=== PATIENT | female | born 1975 | race African-American/Black ===

== ENCOUNTER 2019-01-07 03:51 | Emergency (ER) | payer BC ==
[~2019-01-07] VITALS: Ht 162.6 cm; Wt 108.9 kg
[2019-01-07 04:48] LABS: Urine Bacteria NONE SEEN /hpf (None Seen); Urine Blood 1+ /uL (Negative); Urine Mucus FEW (None Seen); Urine Specific Gravity 1.031 (1.001-1.035); Urine WBC 15 /hpf (0 - 5)
[2019-01-07 07:11] LABS: Basophils # (auto) 0 uL; Basophils % (auto) 0.3 % (0.0-2.0); Eosinophils # (auto) 0 uL; Eosinophils % (auto) 0.1 % (0.0-7.0); Lymphocytes # (auto) 2.7 uL; Lymphocytes % (auto) 32.7 % (10.0-50.0); Mean Corpuscular Hemoglobin 30.2 pg (28.0-32.0); Mean Corpuscular Hgb Conc. 33.2 g/dL (32.0-36.0); Mean Corpuscular Volume 90.9 fL (80.0-100.0); Monocytes # (auto) 0.4 uL; Monocytes % (auto) 5.1 % (0.0-12.0); Neutrophils % (auto) 61.8 % (37.0-80.0); Nucleated Red Blood Cells % 0.3 %; Platelet Count (auto) 330 10^3/uL (140-450); Red Blood Cells 3.97 10^6/uL (4.0-5.20); Red Cell Distribution Width 14.5 % (11.8-14.3); White Blood Cell 8.2 10^3/uL (4.4-10.8)
[2019-01-07 07:26] LABS: Albumin 3.5 g/dL (3.4-5.0)
[2019-01-07 07:29] LABS: BUN/Creatinine Ratio 8.1; Bilirubin, Total 0.8 mg/dL (0.2-1.0)
[2019-01-07] MEDS ORDERED: cefTRIAXone SOD 1,000 MG VL IM ONE (10:15)
[2019-01-07] MEDS ORDERED: LIDOCAINE 2% (LOCAL ANESTH.) PF 5ml SDV ONE (10:26)
[2019-01-07 11:11] VITALS: BP 105/57
== END 2019-01-07 11:20 | disposition home or self-care (01) ==
LOC: ER 03:54
DX: N39.0 Urinary tract infection, site not specified (principal); J45.909 Unspecified asthma, uncomplicated; I10 Essential (primary) hypertension
CPT/HCPCS: 36415; 80053; 81001; 81025; 82150; 83690; 85025; 96372; 99283; J0696; J2001

== ENCOUNTER 2019-05-03 13:59 | Emergency (ER) | payer BC ==
[~2019-05-03] VITALS: Ht 162.6 cm; Wt 109.8 kg
[2019-05-03 14:28] LABS: Basophils # (auto) 0.1 uL; Basophils % (auto) 0.5 % (0.0-2.0); Eosinophils # (auto) 0 uL; Hematocrit 38.4 % (36.0-46.0); Hemoglobin 12.7 g/dL (12.2-16.2); Lymphocytes # (auto) 2.6 uL; Lymphocytes % (auto) 22.8 % (10.0-50.0); Mean Corpuscular Hemoglobin 29.8 pg (28.0-32.0); Mean Corpuscular Volume 90.3 fL (80.0-100.0); Monocytes # (auto) 0.5 uL; Monocytes % (auto) 4.8 % (0.0-12.0); Neutrophils # (auto) 8.2 uL; Neutrophils % (auto) 71.9 % (37.0-80.0); Nucleated Red Blood Cells % 0.1 %; Platelet Count (auto) 367 10^3/uL (140-450); Red Blood Cells 4.25 10^6/uL (4.0-5.20); Red Cell Distribution Width 14.4 % (11.8-14.3); White Blood Cell 11.4 10^3/uL (4.4-10.8)
[2019-05-03 14:33] LABS: Urine Bacteria NONE SEEN /hpf (None Seen); Urine Blood 1+ /uL (Negative); Urine Specific Gravity 1.024 (1.001-1.035); Urine WBC 94 /hpf (0 - 5)
[2019-05-03 14:48] LABS: Potassium 3.8 mmol/L (3.5-5.1)
[2019-05-03 14:52] LABS: BUN/Creatinine Ratio 4.5; Bilirubin, Total 0.8 mg/dL (0.2-1.0); Total Protein 8.6 g/dL (6.4-8.2)
[2019-05-03 15:06] LABS: Calcium 9.6 mg/dL (8.5-10.1)
[2019-05-03] MEDS ORDERED: cefTRIAXone W LIDOCAINE 1 GM IM IM ONE (15:30)
[2019-05-03 16:01] VITALS: BP 142/79
== END 2019-05-03 16:14 | disposition home or self-care (01) ==
LOC: ER 14:13
DX: N39.0 Urinary tract infection, site not specified (principal); R11.2 Nausea with vomiting, unspecified; J45.909 Unspecified asthma, uncomplicated; I10 Essential (primary) hypertension
CPT/HCPCS: 36415; 74176; 80053; 81001; 81025; 85025; 99284; J0696

== ENCOUNTER 2019-07-21 14:29 | Emergency (ER) | payer BC ==
[~2019-07-21] VITALS: Ht 162.6 cm; Wt 114.3 kg
[2019-07-21 15:43] LABS: Urine Bacteria FEW /hpf (None Seen); Urine Blood 2+ /uL (Negative); Urine Mucus FEW (None Seen); Urine Specific Gravity 1.026 (1.001-1.035); Urine WBC 432 /hpf (0 - 5)
[2019-07-21 16:44] LABS: Basophils # (auto) 0.1 uL; Basophils % (auto) 0.6 % (0.0-2.0); Eosinophils # (auto) 0 uL; Eosinophils % (auto) 0.2 % (0.0-7.0); Hematocrit 38.8 % (36.0-46.0); Hemoglobin 12.9 g/dL (12.2-16.2); Lymphocytes # (auto) 2.6 uL; Mean Corpuscular Hemoglobin 29.8 pg (28.0-32.0); Mean Corpuscular Hgb Conc. 33.1 g/dL (32.0-36.0); Monocytes # (auto) 0.4 uL; Monocytes % (auto) 5.2 % (0.0-12.0); Neutrophils # (auto) 5.3 uL; Nucleated Red Blood Cells % 0.1 %; Platelet Count (auto) 350 10^3/uL (140-450); Red Blood Cells 4.32 10^6/uL (4.0-5.20); Red Cell Distribution Width 14.3 % (11.8-14.3); White Blood Cell 8.4 10^3/uL (4.4-10.8)
[2019-07-21 17:29] LABS: Albumin 3.8 g/dL (3.4-5.0); Potassium 3.9 mmol/L (3.5-5.1)
[2019-07-21 17:33] LABS: BUN/Creatinine Ratio 10.3; Bilirubin, Total 0.7 mg/dL (0.2-1.0); Total Protein 8.2 g/dL (6.4-8.2)
[2019-07-21 18:57] VITALS: BP 138/68
== END 2019-07-21 21:11 | disposition home or self-care (01) ==
LOC: ER 14:29
DX: N39.0 Urinary tract infection, site not specified (principal); B37.3 Candidiasis of vulva and vagina; I10 Essential (primary) hypertension; J45.909 Unspecified asthma, uncomplicated
CPT/HCPCS: 36415; 80053; 81001; 84702; 85025

== ENCOUNTER 2020-01-25 08:32 | Emergency (ER) | payer BC ==
[~2020-01-25] VITALS: Ht 162.6 cm; Wt 115.7 kg
[2020-01-25 08:49] VITALS: BP 141/69
== END 2020-01-25 11:20 | disposition home or self-care (01) ==
LOC: ER 08:32
DX: J06.9 Acute upper respiratory infection, unspecified (principal); R05 Cough
CPT/HCPCS: 71045

== ENCOUNTER 2020-05-17 08:44 | Emergency (ER) | payer BC ==
[~2020-05-17] VITALS: Ht 162.6 cm; Wt 114.3 kg
[2020-05-17 08:58] VITALS: BP 131/72
[2020-05-17] MEDS ORDERED: KETOROLAC TROMETH 60MG/2ML VIAL IM ONE (09:45)
== END 2020-05-17 10:11 | disposition home or self-care (01) ==
LOC: ER 08:44
DX: M23.91 Unspecified internal derangement of right knee (principal); I10 Essential (primary) hypertension
CPT/HCPCS: 73562; 96372; 99283; J1885

== ENCOUNTER 2021-02-16 18:59 | Emergency (ER) | payer BC, OTHER ==
[~2021-02-16] VITALS: Ht 162.6 cm; Wt 117.9 kg
[2021-02-16] MEDS ORDERED: ACETAMINOPHEN 500 MG TAB PO ONE (19:15)
[2021-02-16 20:30] VITALS: BP 130/64
== END 2021-02-16 21:49 | disposition home or self-care (01) ==
LOC: ER 19:02
DX: U07.1 COVID-19 (principal); R11.2 Nausea with vomiting, unspecified; R19.7 Diarrhea, unspecified; R50.9 Fever, unspecified; J45.909 Unspecified asthma, uncomplicated; I10 Essential (primary) hypertension
CPT/HCPCS: 36415; 87426

== ENCOUNTER 2023-05-13 10:30 | Emergency (ER) | payer BC ==
[~2023-05-13] VITALS: Ht 162.6 cm; Wt 124.0 kg
[2023-05-13 11:25] VITALS: BP 164/67; PULSE 87; RESP 16; TEMP 98.2; O2SAT 97
[2023-05-13] MEDS ORDERED: HYDR50CA PO (11:45)
[2023-05-13] MEDS ORDERED: KETO2CRE4 TOP (11:45)
[2023-05-13] MEDS ORDERED: CEPH500C PO (11:45)
== END 2023-05-13 12:04 | disposition home or self-care (01) ==
LOC: ER 10:30
DX: B35.4 Tinea corporis (principal); I10 Essential (primary) hypertension; J45.909 Unspecified asthma, uncomplicated

== ENCOUNTER 2023-05-18 14:02 | Emergency (ER) | payer BC ==
[~2023-05-18] VITALS: Ht 162.6 cm; Wt 126.1 kg
[~2023-05-18 14:02] MED LIST: CEPH500C PO; HYDR50CA PO; KETO2CRE4 TOP
[2023-05-18] MEDS ORDERED: KETO2AER3 EX (15:02)
[2023-05-18 15:16] VITALS: BP 142/77; PULSE 101; RESP 16; TEMP 98.3; O2SAT 97
== END 2023-05-18 15:15 | disposition home or self-care (01) ==
LOC: ER 14:02
DX: B35.4 Tinea corporis (principal); I10 Essential (primary) hypertension; J45.909 Unspecified asthma, uncomplicated; Z79.899 Other long term (current) drug therapy

== ENCOUNTER 2023-11-10 17:37 | Emergency (ER) | payer BC, OTHER ==
[~2023-11-10] VITALS: Ht 162.6 cm; Wt 125.6 kg
[~2023-11-10 17:37] MED LIST changes: +KETO2AER3 EX
[2023-11-10] MEDS ORDERED: IBUP1TAB5 PO (21:22)
[2023-11-10] MEDS ORDERED: BACL10TA PO (21:22)
[2023-11-10] MEDS: IBUPROFEN 800 MG TAB PO ONE (22:15)
[2023-11-10 22:37] VITALS: BP 146/81; PULSE 75; RESP 16; TEMP 98.2; O2SAT 97
== END 2023-11-10 22:41 | disposition home or self-care (01) ==
LOC: ER 17:37
DX: S33.5XXA Sprain of ligaments of lumbar spine, initial encounter (principal); S43.401A Unspecified sprain of right shoulder joint, initial encounter; S83.91XA Sprain of unspecified site of right knee, initial encounter; S00.03XA Contusion of scalp, initial encounter; I10 Essential (primary) hypertension; J45.909 Unspecified asthma, uncomplicated; W18.09XA Striking against other object with subsequent fall, initial encounter; Y93.89 Activity, other specified; Y92.69 Other specified industrial and construction area as the place of occurrence of the external cause; Y99.8 Other external cause status
CPT/HCPCS: 70450; 72125; 72131

== ENCOUNTER → 2024-05-04 | Outpatient (CLI) | payer BC ==
[~2024-05-04] MED LIST changes: +BACL10TA PO; +IBUP1TAB5 PO
[2024-05-04 11:25] LABS: Urine Bacteria None Seen /hpf (None Seen)
[2024-05-04 11:53] LABS: Basophils # (auto) 0 10 ^3/uL (0-0.2); Basophils % (auto) 0.6 % (0.0-2.0); Eosinophils # (auto) 0.1 10 ^3/uL (0-0.8); Eosinophils % (auto) 0.7 % (0.0-7.0); Hematocrit 37.2 % (36.0-46.0); Hemoglobin 12.7 g/dL (12.2-16.2); Lymphocytes # (auto) 2.9 10 ^3/uL (0.4-5.4); Lymphocytes % (auto) 38.2 % (10.0-50.0); Mean Corpuscular Volume 91.2 fL (80.0-100.0); Monocytes # (auto) 0.3 10 ^3/uL (0-1.3); Monocytes % (auto) 4.1 % (0.0-12.0); Neutrophils # (auto) 4.3 10 ^3/uL (1.6-8.6); Neutrophils % (auto) 56.4 % (37.0-80.0); Platelet Count (auto) 298 10^3/uL (140-450); Red Blood Cells 4.08 10^6/uL (4.0-5.20); Red Cell Distribution Width 14.7 % (11.8-14.3); White Blood Cell 7.6 10^3/uL (4.4-10.8)
[2024-05-04 12:06] LABS: Alanine Aminotransferase 20 U/L (7-40); Alkaline Phosphatase 76 U/L (46-116); Anion Gap 9 (5-15); BUN/Creatinine Ratio 10.6 (10.0-20.0); Blood Urea Nitrogen 9 mg/dL (9-23); Calcium 10.1 mg/dL (8.7-10.4); Carbon Dioxide 26 mmol/L (20-31); Chloride 107 mmol/L (98-107); Glucose 76 mg/dL (74-106); LDL Cholesterol 114 mg/dL (< 100); Potassium 3.4 mmol/L (3.5-5.1); Sodium 142 mmol/L (136-145); Triglycerides 99 mg/dL (< 150)
[2024-05-04 12:07] LABS: Albumin 4.4 g/dL (3.2-4.8); Aspartate Aminotransferase 15 U/L (13-40); Cholesterol 168 mg/dL (< 200); HDL Cholesterol 42 mg/dL (40-59)
[2024-05-04 12:08] LABS: Total Protein 7.5 g/dL (5.7-8.2)
[2024-05-04 12:10] LABS: Urine Blood 1+ /uL (Negative); Urine Budding Yeast OCCASIONAL /hpf (None Seen); Urine Clarity Clear (Clear); Urine Color Yellow (Yellow); Urine Mucus FEW (None Seen); Urine Protein, UAD TRACE (Negative); Urine Specific Gravity 1.027 (1.001-1.035); Urine Urobilinogen 2 mg/dL (Negative); Urine WBC 1 /hpf (0 - 5); Urine pH 5.5 (5.0-9.0)
[2024-05-04 12:14] LABS: CRP High Sensitivity 1.17 mg/dL (<1.0)
[2024-05-04 12:17] LABS: Bilirubin, Total 0.8 mg/dL (0.2-1.0)
[2024-05-04 12:56] LABS: Erythrocyte Sedimentation Rate 25 mm/hr (0-20)
[2024-05-05 08:06] LABS: Complement C3 168 mg/dL (82-167); Rheumatoid Arthritis Factor <10.0 IU/mL (<14.0); Thyroid Peroxidase (TPO) Ab 9 IU/mL (0-34)
[2024-05-05 10:06] LABS: Anti-Nuclear Antibody Direct Negative (Negative); Anti-dsDNA Antibody <1 IU/mL (0-9); Antiscleroderma-70 Antibody <0.2 AI (0.0-0.9); RNP Antibody <0.2 AI (0.0-0.9); Sjogren's Anti-SS-A Antibody <0.2 AI (0.0-0.9); Sjogren's Anti-SS-B Antibody <0.2 AI (0.0-0.9); Smith Antibody <0.2 AI (0.0-0.9)
[2024-05-06 09:06] LABS: Chlamydia Trachomatis, NAA Negative (Negative); Neisseria gonorrhoeae, NAA Negative (Negative)
[2024-05-07 10:06] LABS: Antiparietal Cell Antibody 2.8 Units (0.0-20.0)
[2024-05-07 13:06] LABS: Actin (Smooth Muscle) Antibody 11 Units (0-19); Anti-Striated Muscle Antibody Negative (Neg:<1:100); Mitochondrial (M2) Antibody <20.0 Units (0.0-20.0)
== END | disposition home or self-care (01) ==
LOC: LAB 10:44
PROVIDERS: ATTEND Nurse Practitioner Family
DX: Z00.01 Encounter for general adult medical examination with abnormal findings (principal); Z11.3 Encounter for screening for infections with a predominantly sexual mode of transmission; Z12.11 Encounter for screening for malignant neoplasm of colon; L23.9 Allergic contact dermatitis, unspecified cause; Z13.89 Encounter for screening for other disorder
CPT/HCPCS: 36415; 80053; 80061; 81001; 83036; 84443; 85025; 85652; 86141; 86160; 86225; 86235; 86376; 86431; 87086

== ENCOUNTER → 2024-06-18 | Outpatient (CLI) | payer BC | END | disposition home or self-care (01) | LOC: LAB 10:59 | PROVIDERS: ATTEND Nurse Practitioner Family | DX: Z12.11 Encounter for screening for malignant neoplasm of colon (principal) | CPT/HCPCS: 82270 ==

== ENCOUNTER → 2024-12-28 | Outpatient (CLI) | payer BC ==
[2024-12-28 11:35] LABS: Alanine Aminotransferase 27 U/L (7-40); Albumin 4.7 g/dL (3.2-4.8); Alkaline Phosphatase 71 U/L (46-116); Anion Gap 10 (5-15); BUN/Creatinine Ratio 17.4 (10.0-20.0); Blood Urea Nitrogen 15 mg/dL (9-23); Carbon Dioxide 29 mmol/L (20-31); Chloride 103 mmol/L (98-107); Glucose 82 mg/dL (74-106); Sodium 142 mmol/L (136-145); Total Protein 7.7 g/dL (5.7-8.2); Triglycerides 74 mg/dL (< 150)
[2024-12-28 11:36] LABS: Bilirubin, Total 0.8 mg/dL (0.2-1.0); Cholesterol 179 mg/dL (< 200); HDL Cholesterol 42 mg/dL (40-59)
[2024-12-28 11:42] LABS: Calcium 10.8 mg/dL (8.7-10.4); Potassium 3.0 mmol/L (3.5-5.1)
== END | disposition home or self-care (01) ==
LOC: LAB 10:42
PROVIDERS: ATTEND Nurse Practitioner Family
DX: E66.01 Morbid (severe) obesity due to excess calories (principal)
CPT/HCPCS: 36415; 80053; 80061

== ENCOUNTER 2025-03-23 14:31 | Emergency (ER) | payer BC, MEDICAID ==
[~2025-03-23] VITALS: Ht 162.6 cm; Wt 111.5 kg
[2025-03-23 15:53] LABS: Hematocrit 38.1 % (36.0-46.0); Hemoglobin 12.8 g/dL (12.2-16.2); Mean Corpuscular Hemoglobin 30.0 pg (28.0-32.0); Mean Corpuscular Volume 89.3 fL (80.0-100.0); Nucleated Red Blood Cells % 0.1 %
[2025-03-23 16:06] LABS: Alanine Aminotransferase 18 U/L (7-40); Albumin 4.6 g/dL (3.2-4.8); Alkaline Phosphatase 79 U/L (46-116); Anion Gap 11 (5-15); BUN/Creatinine Ratio 8.3 (10.0-20.0); Bilirubin, Total 0.7 mg/dL (0.2-1.0); Calcium 9.7 mg/dL (8.7-10.4); Carbon Dioxide 29 mmol/L (20-31); Chloride 103 mmol/L (98-107); Glucose 83 mg/dL (74-106); Potassium 3.0 mmol/L (3.5-5.1); Sodium 143 mmol/L (136-145); Total Protein 7.9 g/dL (5.7-8.2)
[2025-03-23 16:07] LABS: Blood Urea Nitrogen 7 mg/dL (9-23)
--- NOTE | 2025-03-23 16:53 | ED.PDOC ---
General HPI Comments HPI: Meliza 49 y.o female presents to the ED for a chief complaint of increased urgency and frequency that started a couple days ago. Patient reports she appears to have some pressure with urination and notes an overall decrease in urine output. There are no associated symptoms of fever, chills, hematuria, or dysuria. Past Medical History: HTN and asthma Past Surgical History: x2 and D&C Social History: Denies ETOH, smoking, and drug use. Allergies: Denies Chief Complaint: Urinary Time Seen by MD: 16:55 Primary Care Provider: MONSERRAT Burgess notes: Allergies Allergies: Coded Allergies: NO KNOWN ALLERGIES (Unverified , 07/21/19) Home Meds Active Scripts Baclofen (Baclofen) 10 Mg Tab, 1 TAB PO Q8HPRN PRN, #15 TAB as needed for muscle spasm Prov:JEANWENDIALDA Q LEAD [address] SQL DEVELOPER 11/10/23 Ibuprofen Micronized (Ibuprofen) 600 Mg Tab, 1 TAB PO Q6HPRN PRN, #20 TAB as neeed for pain Prov:WENDI JEANALDA Q LEAD [address] SQL DEVELOPER 11/10/23 Ketoconazole (Topical) (KETOCONAZOLE) 2 % Aer, 2 % EX BID, #60 GM Prov:CHAPARRITA GALLOWAY PAC 05/18/23 Hydroxyzine Pamoate (Vistaril) 50 Mg Cap, 1 CAP PO TID, #30 CAP Prov:BALTA BRITTON 05/13/23 Cephalexin Monohydrate (Cephalexin) 500 Mg Cap, 1 CAP PO QID, #40 CAP Prov:BALTA BRITTON 05/13/23 Ketoconazole (Ketoconazole) 2 % Cre, 1 APPLIC TOP BID, #60 GRAMS Prov:BALTA BRITTON 05/13/23 Information Source: Patient Mode of Arrival: Ambulatory Past Medical History PAST MEDICAL HISTORY: Asthma, HTN Surgical History: Denies all surgeries ASSOCIATE PROFESSOR OF SURGERY History: No Pertinent ASSOCIATE PROFESSOR OF SURGERY History Family History Family History: Reviewed,noncontributory to illness Social History Smoker: Non-Smoker Alcohol: Denies ETOH Use Drugs: Denies Drug Use Lives In: Home Was a procedure done? Was a procedure done?: No Differential Diagnosis Kidney stone (Female): N/A Urinary Problem (Female): Urinary retention, UTI X-Ray, Labs, Meds, VS Vital Signs Date Time Temp Pulse Resp B/P (MAP) Pulse Ox O2 Delivery O2 Flow Rate FiO2 03/23/25 14:33 98.1 77 18 154/71 96 98.1 Lab Test 03/23/25 16:00 03/23/25 15:23 Range/Units Urine Color Brown H Yellow Urine Clarity Ex.turbid Clear Urine pH 5.5 5.0-9.0 Urine Specific [place] 1.028 1.001-1.035 Urine Protein 2+ H Negative Urine Ketones Trace Negative Urine Blood 3+ H Negative /uL Urine Nitrite Negative Negative Urine Bilirubin Negative Negative Urine Urobilinogen 3 H Negative mg/dL Urine Leukocyte Esterase 3+ Negative /uL Urine RBC 1569 0 - 4 /hpf Urine Microscopic WBC 2672 H 0-5 /HPF Urine Squamous Epithelial Cells Mod <5 /hpf Urine Bacteria None seen None Seen /hpf Urine Mucus Few None Seen Urine Glucose Normal Normal mg/dL White Blood Count 10.5 4.4-10.8 10^3/uL Red Blood Count 4.27 4.0-5.20 10^6/uL Hemoglobin 12.8 12.2-16.2 g/dL Hematocrit 38.1 36.0-46.0 % Mean Corpuscular Volume 89.3 80.0-100.0 fL Mean Corpuscular Hemoglobin 30.0 28.0-32.0 pg Mean Corpuscular Hemoglobin Concent 33.6 32.0-36.0 g/dL Red Cell Distribution Width 14.6 H 11.8-14.3 % Platelet Count 353 140-450 10^3/uL Mean Platelet Volume 8.2 6.9-10.8 fL Neutrophils (%) (Auto) 59.7 37.0-80.0 % Lymphocytes (%) (Auto) 35.3 10.0-50.0 % Monocytes (%) (Auto) 4.2 0.0-12.0 % Eosinophils (%) (Auto) 0.6 0.0-7.0 % Basophils (%) (Auto) 0.2 0.0-2.0 % Neutrophils # (Auto) 6.3 1.6-8.6 10 ^3/uL Lymphocytes # (Auto) 3.7 0.4-5.4 10 ^3/uL Monocytes # (Auto) 0.4 0-1.3 10 ^3/uL Eosinophils # (Auto) 0.1 0-0.8 10 ^3/uL Basophils # (Auto) 0 0-0.2 10 ^3/uL Nucleated Red Blood Cells 0.1 % Sodium Level 143 136-145 mmol/L Potassium Level 3.0 L 3.5-5.1 mmol/L Chloride Level 103 98-107 mmol/L Carbon Dioxide Level 29 20-31 mmol/L Anion Gap 11 5-15 Blood Urea Nitrogen 7 L 9-23 mg/dL Creatinine 0.84 0.550-1.02 mg/dL Glomerular Filtration Rate Calc 84 >90 mL/min BUN/Creatinine Ratio 8.3 L 10.0-20.0 Serum Glucose 83 74-106 mg/dL Lactic Acid Level 1.3 0.4-2.0 mmol/L Calcium Level 9.7 8.7-10.4 mg/dL Total Bilirubin 0.7 0.2-1.0 mg/dL Aspartate Amino Transferase (AST) 17 13-40 U/L Alanine Aminotransferase (ALT) 18 7-40 U/L Alkaline Phosphatase 79 46-116 U/L Total Protein 7.9 5.7-8.2 g/dL Albumin 4.6 3.2-4.8 g/dL Time of 1ST Reevaluation: 17:06 Reevaluation 1ST: Unchanged Patient Education/Counseling: Diagnosis, Treatment Family Education/Counseling: No Family Present Departure 1 Departure Time of Disposition: 17:21 Impression: Primary Impression: UTI (urinary tract infection) Additional Impression: Hypokalemia Disposition: 01 HOME / SELF CARE / HOMELESS Condition: Stable Additional Instructions: Additional instructions: Please read all instructions provided in this packet carefully. You MUST follow-up with your primary care/family doctor in 1 to 2 days. If you are unable to see your primary care/family doctor, please return to our emergency room for re-assessment and re-evaluation in 1 to 2 days. Return to the emergency room here in our facility or to the nearest ER [facility] if your symptoms change or worsen. CONSULTATIONS: you MUST Follow-up for consultation as soon as possible with: ---[facility] doctor as needed.- You MUST call the consultants office yourself to make an appointment. You may need to arrange that through your insurance and/or your primary/family doctor. If you are unable to see the cardiology consultants in 1 to 2 days, you must return to our emergency room (or any other ER of your choice) for re-assessment and re- evaluation. Adequate fluid hydration. Although you have been discharged from the Emergency Department, this does not mean that you have a "clean bill of health". No definitive diagnosis for your symptoms has been made today. It is possible that you are in the process of developing a serious illness. This is why you must return to the ED without fail if any new or worsening symptoms develop. Repeat basic metabolic panel in 48-72 hours. e-Prescriptions Nitrofurantoin Monohydrate Mac (Macrobid) 100 Mg Cap 100 MG PO BID for 7 Days, #14 CAP Prov: FRANCA REED DO 03/23/25 Discharged With: Self Critical Care Note Critical Care Time?: No I personally scribed for FRANCA REED DO ([email or web address]) on 03/23/25 at 16:53. Electronically submitted by Rhea Eckert ([employer]). I personally scribed for FRANCA REED DO ([email or web address]) on 03/23/25 at 17:09. Electronically submitted by Rhea Eckert ([facility] [employer]). FRANCA REED DO Mar 23, 2025 16:53
[2025-03-23 17:17] LABS: Urine Protein, UAD 2+ (Negative)
[2025-03-23] MEDS ORDERED: NITR-87 PO (17:23)
[2025-03-23 20:24] VITALS: BP 107/61; PULSE 74; RESP 20; TEMP 98.5; O2SAT 96
[2025-03-23] MEDS: POTASSIUM CHL 20 Meq TABLET PO ONE (20:30)
== END 2025-03-23 22:30 | disposition home or self-care (01) ==
LOC: ER 14:35
DX: N39.0 Urinary tract infection, site not specified (principal); E87.6 Hypokalemia; I10 Essential (primary) hypertension; J45.909 Unspecified asthma, uncomplicated; Z79.899 Other long term (current) drug therapy
CPT/HCPCS: 36415; 80053; 81001; 83605; 85025